=== PATIENT | female | born 1995 | race Caucasian/White ===

== ENCOUNTER 2022-05-21 16:31 | Inpatient (IN) | payer OTHER ==
[~2022-05-21] VITALS: Ht 165 cm; Wt 84.0 kg
[~2022-05-21 16:31] MED LIST: FLONASE ALLER15.8 ML; PERCOCET 5-3251 EACH PO; PROZAC40 MG PO; REXULTI1 MG PO; WELLBUTRIN XL150 MG PO; XANAX1 MG PO
[2022-05-21 17:26] LABS: BASOPHIL 0.3 % (0-2); EOSINOPHIL 1.1 % (0-5); HCT 41.7 % (37.0-47.0); HGB 14.1 g/dl (12.5-16.0); LYMPHOCYTE 21.2 % (15-48); MCH 31.3 pg (25.0-31.0); MCHC 33.8 g/dL (32.0-36.0); MCV 92.5 fL (78.0-100.0); MONOCYTE 5.8 % (0-12); MPV 9.1 fL (6.0-9.5); NEUTROPHIL 71.3 % (41-80); NRBC 0; PLT 211 K/uL (150-400); RBC 4.51 M/uL (4.20-5.40); WBC 6.2 K/uL (4.0-10.5)
[2022-05-21 17:53] LABS: ALBUMIN 3.9 g/dL (3.4-5.0); BILIRUBIN - TOTAL 0.4 mg/dL (0.2-1.0); BUN/CREAT RATIO (CALC) 9.3 RATIO; CREATININE 0.75 mg/dL (0.51-0.95); GLOBULIN (CALCULATION) 3.1 g/dL; POTASSIUM 3.9 mmol/L (3.5-5.1)
[2022-05-21 18:04] LABS: LACTIC ACID 0.6 mmol/L (0.4-1.9)
[2022-05-21] MEDS ORDERED: LITHIUM300 MG PO (18:10)
[2022-05-21 18:37] LABS: BILIRUBIN NEGATIVE (NEGATIVE); BLOOD TRACE-INTACT Ery/uL (NEGATIVE); CLARITY CLEAR (CLEAR); COLOR YELLOW (YELLOW); GLUCOSE (U) NORMAL (NORMAL); LEUKOCYTES NEGATIVE Leu/uL (NEGATIVE); NITRITE NEGATIVE (NEGATIVE); PROTEIN NEGATIVE (NEGATIVE); SPECIFIC GRAVITY <=1.005 (1.001-1.030); UROBILINOGEN 0.2 mg/dL (0.2-1.0); pH 6.5 (5.0-9.0)
[2022-05-21 18:57] LABS: SQUAMOUS EPITHELIAL CELLS RARE; URINARY RBC RARE
--- NOTE | 2022-05-22 03:41 | NUR ---
Patient called RN to room and stated she is bleeding. Rn pulled out patient's pad and found a large clot. Radha from OB came and visualized clot to confirm it was just that. MARIFER Bal aware. No new orders. Will continue to monitor patient and output.
--- NOTE | 2022-05-22 06:23 | NUR ---
PATIENT HAS EXPELLED TWO MORE CLOTS. ONE WEIGHING 0.9OZ, AND ONE IS 0.7 OZ. GENARO CAICEDO AWARE. WILL CONTINUE TO MONITOR.
[2022-05-22 08:42] LABS: BASOPHIL 0.3 % (0-2); EOSINOPHIL 1.2 % (0-5); HCT 38.3 % (37.0-47.0); LYMPHOCYTE 31.5 % (15-48); MCH 31.4 pg (25.0-31.0); MCHC 33.9 g/dL (32.0-36.0); MCV 92.5 fL (78.0-100.0); MONOCYTE 7.4 % (0-12); MPV 9.4 fL (6.0-9.5); NRBC 0; PLT 220 K/uL (150-400); RBC 4.14 M/uL (4.20-5.40); RDW 12.9 % (11.5-14.0); WBC 6.7 K/uL (4.0-10.5)
[2022-05-22 09:03] LABS: BUN 10 mg/dL (7-18); BUN/CREAT RATIO (CALC) 11.9 RATIO; CHLORIDE 103 mmol/L (98-107); CO2 (BICARBONATE) 29 mmol/L (21-32); CREATININE 0.84 mg/dL (0.51-0.95); GLUCOSE 86 mg/dL (74-106); POTASSIUM 3.6 mmol/L (3.5-5.1)
--- NOTE | 2022-05-22 09:13 | NUR ---
@0825 [facility] WAS CALLED B/P 118/74, H/R 124, RESP 18, F/S 71, SATS 02 97%. PT NOT RESPONDING WELL, CODE WAS CALLED. @0834 V/S B/P 92/59, PULSE 62, RESP 18, PT VOMITED CLEAR LIQUID AT THIS TIME. ZOFRAN 4MG IV GIVEN AT THIS TIME. LAB DRAWN EKG DONE. LR BOLUS ORDERED AT THIS TIME ORDERS TO SEND TO UNIT REPORT GIVEN TO CHIQUITA LOPEZ
[2022-05-23] MEDS ORDERED: IBUPROFEN800 MG PO (14:27)
[2022-05-23] MEDS ORDERED: PROZAC40 MG PO (14:28)
[2022-05-23] MEDS ORDERED: LITHIUM300 MG PO (14:29)
[2022-05-23] MEDS ORDERED: ATARAX25 MG PO (14:29)
--- NOTE | 2022-05-23 16:50 | NUR ---
PT LEFT HER HOME BED PILLOW, CALLED HER AND SHE SAID SHE WOULD COME BACK ANOTHER DAY, DOUBLED BAGGED AND NAME PLACED ON BAGS, IN DIRTY UTILITY RM IN TCU
== END 2022-05-23 15:10 | disposition home or self-care (01) | DRG 770 ==
LOC: FICU 16:31 → FMS 16:31 → FICU 05-22 08:35
PROVIDERS: Internal Medicine; ADMIT Specialist
PROC: 10D17ZZ Extraction of Products of Conception, Retained, Via Natural or Artificial Opening (ICD-10-PCS; principal; 2022-05-21)
DX: O03.4 Incomplete spontaneous abortion without complication (principal); F31.9 Bipolar disorder, unspecified; F41.9 Anxiety disorder, unspecified; M32.9 Systemic lupus erythematosus, unspecified; O03.0 Genital tract and pelvic infection following incomplete spontaneous abortion; K21.9 Gastro-esophageal reflux disease without esophagitis; Z87.891 Personal history of nicotine dependence; Z79.899 Other long term (current) drug therapy
CPT/HCPCS: 36415; 71045; 76817; 80048; 80053; 80170; 81001; 83605; 84145; 84484; 85025; 86850; 86900; 86901; 87040; 93005; 94760; J0690; J1100; J1170; J1200; J1580; J1885; J2250; J2270; J2405; J2704; J3010; J7050; J7120; U0002

== ENCOUNTER → 2022-06-05 | Day surgery (SDC) | payer OTHER ==
[~2022-06-05] VITALS: Ht 165.1 cm; Wt 78.1 kg
[~2022-06-05] MED LIST changes: +ATARAX25 MG PO; +IBUPROFEN800 MG PO; +LITHIUM300 MG PO
[2022-06-05 12:35] LABS: HCT 36.6 % (37.0-47.0); HGB 12.3 g/dl (12.5-16.0); MCH 31.1 pg (25.0-31.0); MCHC 33.6 g/dL (32.0-36.0); MCV 92.4 fL (78.0-100.0); MPV 9.3 fL (6.0-9.5); RBC 3.96 M/uL (4.20-5.40); RDW 13.2 % (11.5-14.0); WBC 6.3 K/uL (4.0-10.5)
== END | disposition home or self-care (01) ==
LOC: FAS 10:57
PROVIDERS: Specialist
DX: N93.8 Other specified abnormal uterine and vaginal bleeding (principal); O03.4 Incomplete spontaneous abortion without complication
CPT/HCPCS: 36415; 84702; J0690; J1100; J1170; J1885; J2250; J2405; J2704; J3010; J7120